=== PATIENT | female | born 1945 | race Caucasian/White ===

== ENCOUNTER 2016-09-26 10:50 | Inpatient (IN) ==
--- NOTE | 2016-09-25 22:04 | Discharge Summary ---
<Dona Lyles - Last Filed: 09/25/16 22:02> Date of Encounter: 09/25/16 - Discharge Diagnosis (1) Arthritis of knee, left Priority: Primary Status: Acute (2) Status post total knee replacement, left Priority: Primary Status: Acute (3) CAD (coronary artery disease) Priority: Secondary Status: Chronic Qualifiers: Coronary Disease-Associated Artery/Lesion type: cheesh-na artery [place] vs. transplanted heart: cheesh-na heart Associated angina: without angina Qualified Code(s): I25.10 - Atherosclerotic heart disease of cheesh-na coronary artery without angina pectoris (4) History of [place] (myocardial infarction) Priority: Secondary Status: Chronic (5) HLD (hyperlipidemia) Priority: Secondary Status: Chronic Qualifiers: Hyperlipidemia type: pure hypercholesterolemia Qualified Code(s): E78.00 - Pure hypercholesterolemia, unspecified; E78.0 - Pure hypercholesterolemia (6) Chronic pain Priority: Secondary Status: Chronic Qualifiers: Chronic pain type: other chronic pain Qualified Code(s): G89.29 - Other chronic pain - Discharge Medications Home Medications: Aspirin Enteric Coated [Aspirin EC] 325 mg PO DAILY #21 tablet.dr 09/25/16 [Rx] OxyCODONE Immed Rel [Roxicodone 5 MG] 5 - 10 mg PO Q6HR PRN #40 tablet 09/25/16 [Rx] Aspirin [Lo-Dose Aspirin EC] 81 mg PO DAILY 09/26/16 [History] Docusate [Colace] 100 mg PO DAILY PRN 09/26/16 [History] Furosemide [Lasix] 40 mg PO DAILY 09/26/16 [History] HYDROcodone/Acet 5/325 mg [[place] 5-325 mg] 1 tab PO Q6H PRN 09/26/16 [History] LORazepam [Ativan] 0.5 mg PO Q6H PRN 09/26/16 [History] Methotrexate [Otrexup] 7.5 mg PO WE 09/26/16 [History] Omeprazole [PriLOSEC] 40 mg PO DAILY 09/26/16 [History] Potassium Chloride [K-Tab ER] 10 meq PO DAILY 09/26/16 [History] Simvastatin [Zocor] 20 mg PO HS 09/26/16 [History] amLODIPine [Norvasc] 5 mg PO DAILY 09/26/16 [History] rOPINIRole [Requip] 0.25 mg PO HS 09/26/16 [History] Allergies/Adverse Reactions: Allergies Penicillins Allergy (Verified 09/26/16 19:37) Rash codeine Adverse Reaction (Verified 09/26/16 19:37) Cough lisinopril Adverse Reaction (Verified 09/26/16 19:37) Cough Primary care physician: Татьяна Sutherland MD - Patient Status Disposition: Home Health Service Condition: Good - Discharge Instructions Follow Up With: Dona Lyles PAC [Physician [employer]] - 10/06/16 2:45 pm Татьяна Sutherland MD [Primary Care Provider] - Additional Instructions: Discharge Instructions: Total Knee Replacement Please call [facility] ([phone]), your Primary Care Physician, or report to the Emergency Room if you have any of the following symptoms: Nausea, vomiting, fever greater that 101.5, swelling, chest pain, shortness of breath, increased pain/redness/drainage/odor for your incision site, numbness/ tingling, or any other concerning symptoms. ACTIVITY:Weight-bearing as tolerated. You may progress off support (crutches or walker) as tolerated. MEDICATIONS: Upon discharge resume your home medications. Take all the medications as prescribed. Take a stool softener if taking narcotic pain medications. Stool softeners are only effective if you drink enough fluids. Drink 6-8 glass of water or fluids a day, unless this is not allowed for another health problem. Despite using stool softeners, if you haven't had a bowel movement in 3 days, please switch to a gentle laxative. Gentle laxatives are sold over the counter. You should have a bowel movement within 24 hours, if not call the office. You will be discharged from the hospital with a prescription for pain medication. You are encouraged to decrease the use of narcotic pain medication as tolerated. Should you require a refill, please call the office. [facility] prescribes narcotic pain medication for only 4-6 weeks after surgery. If you require pain medication beyond this time period, you may be referred to your Primary Care Physician or to the Pain Clinic for further evaluation. Plan ahead for refills on pain medication as many narcotics either need to be picked up at the office or mailed. It is best to call 48-72 hours in advance of needing a prescription refill so you don't run out of medication. To help control the post-operative pain, you may take NSAIDs (Aleve,Advil, Motrin, Ibuprofen, Naprosyn) or Tylenol as prescribed on the bottle in addition to the pain medication. ANTICOAGULATION (blood thinners): Continue your Aspirin, Lovenox or Coumadin as prescribed to help prevent a blood clot in the leg or in the lungs. As long as your incision remains dry and you tolerate the NSAIDs (Aleve, Advil, Motrin, ibuprofen, naprosyn), it is OK to use the NSAIDS while you are taking your anticoagulation medication. Should your incision start to drain, stop the NSAID and contact our office. Common symptoms of blood clot in the legs include: localized pain, swelling, calf tenderness, redness or discoloration of the skin. Blood clot in the lung symptoms include: shortness of breath, rapid pulse, sweating, and chest pain that worsens with deep breathing, coughing up blood, lightheadedness, feelings of anxiety. If you experience any of these symptoms notify your physician immediately, go to the emergency room, or if having trouble breathing, call 911. WOUND CARE: Leave the dressing on for 7 to 10days. You may change the dressing if it becomes saturated greater than 50%. Do not get the dressing wet at anytime. Wash your hands with antibacterial soap, rinse and dry prior to any wound care. If you have brian the visiting nurse or rehab facility can remove the stapes 10-14 days after surgery and place steri-strips across the wound. Leave the steri-strips in place until they fall off on their won. You may let water from the shower run on top of the steri-strips. If you do not have a visiting nurse or rehab facility, you will need to return to the office at 10-14 days for the brian to be removed. If you have itching or redness around the dressing call the office. FOLLOW-UP: Please follow up with your surgeon in the orthopedic clinic in 4 weeks from the day of surgery. If you have brian that need to be removed, you will need to come back to the office in 10-14 days from the day of surgery. - Hospital Course Hospital course: Ms. Pastrana is a 71 year old female - Time Spent with Patient Total time spent providing and/or coordinating discharge services: <Kaleb Quigley - Last Filed: 09/29/16 06:34> Date of Encounter: 09/29/16 Time of Encounter: 06:34 - Discharge Diagnosis (1) Arthritis of knee, left Priority: Primary Status: Chronic (2) Status post total knee replacement, left Priority: Primary Status: Acute (3) CAD (coronary artery disease) Priority: Secondary Status: Chronic Qualifiers: Coronary Disease-Associated Artery/Lesion type: cheesh-na artery [place] vs. transplanted heart: cheesh-na heart Associated angina: without angina Qualified Code(s): I25.10 - Atherosclerotic heart disease of cheesh-na coronary artery without angina pectoris (4) History of HI (myocardial infarction) Priority: Secondary Status: Chronic (5) HLD (hyperlipidemia) Priority: Secondary Status: Chronic Qualifiers: Hyperlipidemia type: pure hypercholesterolemia Qualified Code(s): E78.00 - Pure hypercholesterolemia, unspecified; E78.0 - Pure hypercholesterolemia (6) Chronic pain Priority: Secondary Status: Chronic Qualifiers: Chronic pain type: other chronic pain Qualified Code(s): G89.29 - Other chronic pain (7) Acute blood loss anemia Priority: Primary Status: Acute Primary care physician: Татьяна Sutherland MD - Patient Status Functional capacity at discharge: uses cane/walker Overall status at discharge: patient is progressing back to baseline - Hospital Course Hospital course: Ms. Pastrana is a 71 year old female Status post left total knee replacement. The patient had an uneventful postoperative course. They received antibiotics and physical therapy and were discharged in stable condition. There will follow -up in the office in 2 weeks. - Time Spent with Patient Total time spent providing and/or coordinating discharge services:
--- NOTE | 2016-09-25 22:09 | Physician Discharge Referral ---
Home Health/Hosp Referral Info Transfer to: Home Health Provider in Charge Post Discharge: PCP - Diagnosis (1) Arthritis of knee, left Priority: Primary Status: Acute (2) Status post total knee replacement, left Priority: Primary Status: Acute (3) CAD (coronary artery disease) Priority: Secondary Status: Chronic (4) History of [place] (myocardial infarction) Priority: Secondary Status: Chronic (5) HLD (hyperlipidemia) Priority: Secondary Status: Chronic (6) Chronic pain Priority: Secondary Status: Chronic - Respiratory Orders None Smoking Cessation: Smoking cessation has been advised. For more information, call the [place] Tobacco Quit Line at 2-750-TRWR-NOW. - Diet/Nutrition Diet/Nutrition Orders: Regular - Activity Activity Orders: Up ad stan, Ambulate - Services Needed Following services are medically necessary services: Nursing, Home Health Aide, Physical Therapy, Occupational Therapy Home Care Orders: Opsite dressing, leave intact until first post-operative visit. If dressing becomes >50% saturated, contact office, remove dressing and place appropriate dressing in its place. Do not allow for dressing to get wet. Swapna in place, plan to remove at post-operative day #14-16. Total Joint Precautions x 6 weeks Apply cold therapy wrap 3-6x/day for 20 minutes at a time. Encourage ambulation throughout the day Use Incentive spirometer 10x/hour. Elevate affected extremity above heart as tolerated. Brace: Wear knee immobilizer at night x 2 weeks - Transfer Medications Prescriptions: OxyCODONE Immed Rel [Roxicodone 5 MG] 5 - 10 mg PO Q6HR PRN #40 tablet PRN Reason: Pain Aspirin Enteric Coated [Aspirin EC] 325 mg PO DAILY #21 tablet. Home Medications: Aspirin Enteric Coated [Aspirin EC] 325 mg PO DAILY #21 tablet. 09/25/16 [Rx] OxyCODONE Immed Rel [Roxicodone 5 MG] 5 - 10 mg PO Q6HR PRN #40 tablet 09/25/16 [Rx] Allergies/Adverse Reactions: Allergies codeine Allergy (Unverified 09/21/16 09:42) Cough lisinopril Allergy (Unverified 09/21/16 09:42) Cough Penicillins Allergy (Unverified 09/21/16 09:42) Rash Certification: Further, I certify that my clinical findings support that this patient is homebound (i.e. absences from home require considerable and taxing effort and are for medical reasons or restorationist services or infrequently or short duration when for other reasons) because: Homebound Reason: Post-surgery restriction and or conditions limit ability to leave home Attestation: My signature below is to certify that this patient is under my care and that I, or nurse practitioner, or a physician's practice assistant working with me, has a face-to -face encounter with this patient.
[2016-09-26] MEDS ORDERED: Famotidine 20 MG/2 ML VIAL IVP ONE (11:04)
[2016-09-26] MEDS ORDERED: Gabapentin 300 MG CAPSULE PO ONE (11:05)
[2016-09-26] MEDS ORDERED: Clindamycin 900 MG/50 ML 900 MG/50 ML IV.SOLN IVPB ONE ×2 (11:27→11:28)
[2016-09-26] MEDS ORDERED: Ringers Solution, Lactated 1,000 ML IVC SCH (11:30)
[2016-09-26] MEDS ORDERED: *HR* Propofol 200 MG/20 ML VIAL IVP ONE (11:34)
[2016-09-26] MEDS ORDERED: *HR* FentaNYL (PF) 100 MCG/2 ML VIAL ONE (11:34)
[2016-09-26] MEDS ORDERED: Lidocaine -MPF 2% 2 ML VIAL ONE (11:34)
[2016-09-26] MEDS ORDERED: Ondansetron 4 MG/2 ML VIAL ONE (11:37)
--- NOTE | 2016-09-26 11:52 | Anesthesia Evaluation PreOp ---
Date of Encounter: 09/26/16 Time of Encounter: 11:50 - Past History Planned Operation: Left TKA Cardiac History: [place], HTN, Hyperlipidemia Pulmonary History: Former smoker NETWORK [employer]CH[employer] History: Denies Any Significant HX Other Medical History: Other (Anxiety) Anesthesia History: No Prior Anesthetic Complications : No Alcohol Use: none Drug use: none Medications and Allergies Aspirin Enteric Coated [Aspirin EC] 325 mg PO DAILY #21 tablet. 09/25/16 [Rx] OxyCODONE Immed Rel [Roxicodone 5 MG] 5 - 10 mg PO Q6HR PRN #40 tablet 09/25/16 [Rx] Allergies codeine Allergy (Unverified 09/21/16 09:42) Cough lisinopril Allergy (Unverified 09/21/16 09:42) Cough Penicillins Allergy (Unverified 09/21/16 09:42) Rash - Meds/Allergy Pre-op Review Medications Reviewed: Yes Allergies Reviewed: Yes Beta Blockers on Current Med List: No Anesthesia Results - Labs Laboratory Tests 09/21/16 09/21/16 09:50 09:50 Hgb 15.1 Hct 45.5 H Plt Count 297 Sodium 143 Potassium 3.1 L BUN 11 Creatinine 1.01 - Imaging EKG: report reviewed (SR) Anesthesia Exam O2 Sat Height 1.55 m Height 1.55 m Weight 81.193 kg Weight 81.193 kg O2 Sat by Pulse Oximetry 99 Vital Signs Temp Pulse Resp BP Pulse Ox 98.1 F 71 18 148/86 99 09/26/16 11:09 09/26/16 11:09 09/26/16 11:09 09/26/16 11:09 09/26/16 11:09 Height: 5'1 Weight: 179 lbs NPO (# of Hours): MN Pain Scale: 0 - HEENT Pupil (Motor): Pupils equal, EOMI Mallampati: III Teeth: Edentulous Oral Opening: Less than or equal to 3 - NETWORK [employer]CHITECT LOC: Oriented [employer]CH[employer] Motor: Normal RUE, Normal LUE, Normal RLE, Normal LLE, Normal Face [employer] Sensory: Normal: RUE, LUE, RLE, LLE, Face - Cardiac Rhythm: Regular Murmur: None JVD: No Carotid Bruit: No - Pulmonary Breath Sounds: bilateral Clear Respiratory Effort: Symmetrical Anesthesia Assess/Plan ASA Score: 3 (HTN CAD) Modified Foster Scale for Level of Consciousness: Cooperative, oriented, and tranquil Anesthetic Plan: General, Regional Monitoring Plan: Standard Monitors Recovery Plan: PACU (Discussed GA and RA, agrees to proceed)
--- NOTE | 2016-09-26 12:12 | History & Physical Report ---
Date of Encounter: 09/26/16 Time of Encounter: 12:11 24 Hour HP Update - Instructions Instructions: If the History and Physical is less than 30 days old and was completed prior to A.M. admission and or procedure and has NOT been updated on calendar day of procedure please complete this update prior to performing procedure. - Update Patient reports changes in Medical Condition: No Changes in examination, assessment, or condition: No Changes in Medication: No Preop tests/diagnostics Reviewed: Yes Surgery Remains Indicated: Yes Consent for Planned Operative Procedure(s) Verified: Yes - Pre-Operative Checklist Preoperative Checklist Indicated: No Prophylactic Antibiotic Ordered: Yes Is VTE Prophylaxis Indicated?: Yes
[2016-09-26] MEDS ORDERED: Tetracaine/PF 20 MG/2 ML AMPUL ONE (12:29)
[2016-09-26] MEDS ORDERED: Bupivacaine/Clonidine Syringe 1 EACH SYRINGE ONE (12:29)
[2016-09-26] MEDS ORDERED: ROPIVACAINE HCL/PF 0.5% 30 ML VIAL ONE (12:29)
[2016-09-26] MEDS ORDERED: *HR* Midazolam HCl 2 MG/2 ML VIAL ONE (12:33)
[2016-09-26] MEDS ORDERED: *HR* Meperidine 25 MG/ML SYRINGE IVP PRN (13:18)
--- NOTE | 2016-09-26 13:19 | Anesthesia Procedures ---
Date of Encounter: 09/26/16 Time of Encounter: 11:50 Procedures: Anesthesia - Nerve Block Procedure Date: 09/26/16 Time: 12:45 Pre-op Diagnosis: Left Knee OA Surgical Procedure: Left TKA Checklist: Correct Patient Identifier Correct side: Left Blood Thinner: No Monitor Applied: EKG, BP, Pulse Oximetry Supplemental Oxygen via Nasal Cannula (L/min): 2 Sedation: Versed (mg): 2 Sedation: Fentanyl (mcg): 100 Indication: Post Op Analgesia Pre-op Neuro Deficits: No Block Type: Femoral, Other (IPACK) Catheter placed: No Depth at skin (cm): 3 Sterile Technique: Yes Ultrasound used: Yes Anatomy identified: Yes Visual spread of Local: Yes Neuro Stimulation: Yes Nerve Stimulator Range: >0.4 - 0.6 mA Blood on Needle Aspiration: No Smooth Injection of Local: Yes Pain with Injection of Local: No Prep: Chlorhexadine Needle: 22 x 50 mm Stimuplex Local: 0.25% Bupivicaine w/Clonidine 20 mcg/cc, Ropivacaine (0.5%) Volume (cc): 30 Number of Attempts: 1 Complications: None/effective block Vitals: Vital Signs/O2 Sat/Glucose, Most Current Temp Pulse Resp BP Pulse Ox 09/26/16 12:55 98.1 F 71 16 137/89 96 09/26/16 12:34 72 16 142/78 97 09/26/16 11:09 98.1 F 71 18 148/86 99
[2016-09-26] MEDS ORDERED: Dexamethasone 4 MG/ML VIAL ONE ×2 (13:24→13:25)
--- NOTE | 2016-09-26 13:35 | Orthopedic Operative Note ---
Date of procedure: 09/26/16 Pre-op diagnosis: Left knee arthritis Post-op diagnosis: same Procedure: Procedure: Left Total knee replacement Estimated blood loss: 200 cc Hardware: Metal and polyethylene replacement. Arthrex Femur: 3 Tibia: 3 PS insert: 13 Patella: 34 Exam Under anesthesia: Loss full extension 10 degrees full flexion no stability Procedural Notes: Grade 4 arthritic changes medial compartment patellofemoral joint. Operative procedure: The patient was brought to the operating room and placed on the operating room table. After general anesthesia was administered the operative knee was examined. Findings were noted in the exam under anesthesia. The operative extremity was prepped and draped in sterile surgical fashion. The patient received IV antibiotics prior to skin incision. A standard midline incision was made centered over the patella. The incision was made through the skin and subcutaneous tissue. A medial parapatellar tendon approach was performed. Care was taken to preserve tissue along the medial aspect of the patella. And to protect the patella tendon. The deep MCL was released off the medial tibia. The infra patella fat pad was excised. Knee was brought into flexion. Patient noted to have grade 4 arthritic changes medial compartment and patellofemoral joint. The entry hole was made for the intramedullary femoral guide. The guide was seated in 6 degrees of valgus. Anterior cut was made followed by the distal cut. The ACL the PCL the medial and the lateral menisci were excised. The tibia was subluxed forward. The entry hole was made for the intramedullary tibial guide. Guide was seated to resect 2 mm off the more abnormal side. The knee was brought into flexion the distal femur was sized to a 3. The femoral guide was seated, the anterior cut was made followed by the posterior condylar cut, followed by the chamfer cuts. The finishing guide was seated the box cut was made and the lug holes were drilled. The tibia was sized to a 3, the tibial tray was seated and prepared with the large drill followed by the fin cutter. Trial reduction revealed full extension no varus valgus instability with the appropriate 13 PS Jeannie. The patella was everted and cut was made at the level of the insertion of the quadriceps and patella tendon. The patella was sized 34 the guide was seated and the lug holes are drilled. Trial reduction revealed excellent patella tracking. All trial components were removed all bony surfaces were irrigated. The tibia was cemented first followed by the femur. The 13 PS Jeannie was seated and the knee was brought into full extension. The patella was cemented and held in place with the patellar holding clamp. After the cement had hardened, the knee sat for 2 minutes with a Betadine saline solution. The knee was then irrigated out with 2 L of pulse irrigation. The knee was closed by the PA. The extensor mechanism was closed with #2 FiberWire suture and #2 PDS suture. The subcutaneous tissue was then irrigated and closed deep with #1 PDS suture superficially with 0 PDS suture and skin was closed with skin brian. The patient was then placed in a sterile dressing and a postoperative brace extubated and transferred to recovery room in stable condition. Anesthesia: MARIO Surgeon: Kaleb Quigley Folder Operator: Ginny Pineda Condition: stable Disposition: PACU
[2016-09-26] MEDS ORDERED: Ketorolac 30 MG/ML VIAL ONE (13:37)
[2016-09-26 14:32] LABS: Hematocrit 41.8 % (35.3-44.9); Hemoglobin 13.9 g/dL (11.5-15.4)
[2016-09-26] MEDS: *HR* HYDROmorphone (PF) 1 MG/ML SYRINGE IVP PRN ×3 (14:35→14:49)
[2016-09-26] MEDS ORDERED: Ondansetron 4 MG/2 ML VIAL IVP PRN (15:34)
[2016-09-26] MEDS ORDERED: *HR* LORazepam 0.5 MG TABLET PO PRN (15:34)
[2016-09-26] MEDS ORDERED: Naloxone 0.4 MG/ML INJ IVP PRN (15:34)
[2016-09-26] MEDS ORDERED: Sennosides 8.6 MG TABLET PO PRN (15:34)
[2016-09-26] MEDS ORDERED: MOM Conc 10 ML UD.LIQ PO PRN (15:34)
[2016-09-26] MEDS ORDERED: *HR* OxyCODONE Immed Rel 5 MG TABLET PO PRN (15:34)
[2016-09-26] MEDS ORDERED: *HR* Enoxaparin 30 MG/0.3 ML SYRINGE SQ SCH (18:00)
[2016-09-26] MEDS: Clindamycin 900 MG/50 ML 900 MG/50 ML IV.SOLN IVPB SCH (18:31)
[2016-09-26] MEDS: *HR* OxyCODONE Immed Rel 5 MG TABLET PO PRN (18:32)
[2016-09-26] MEDS: *HR* Enoxaparin 30 MG/0.3 ML SYRINGE SQ SCH (18:32)
[2016-09-26] MEDS ORDERED: Temazepam 15 MG CAPSULE PO PRN (21:00)
[2016-09-26] MEDS: rOPINIRole 0.25 MG TABLET PO SCH (21:29)
[2016-09-26] MEDS: Ringers Solution, Lactated 1,000 ML IVC SCH (21:44)
[2016-09-27] MEDS: Clindamycin 900 MG/50 ML 900 MG/50 ML IV.SOLN IVPB SCH (00:18)
[2016-09-27] MEDS: *HR* Enoxaparin 30 MG/0.3 ML SYRINGE SQ SCH ×2 (05:25→17:14)
[2016-09-27 06:03] LABS: Hematocrit 33.5 % (35.3-44.9)
[2016-09-27 06:14] LABS: Hemoglobin 11.2 g/dL (11.5-15.4)
--- NOTE | 2016-09-27 06:23 | Orthopedics Progress Note ---
Date of Encounter: 09/27/16 Time of Encounter: 06:23 - Assessment and Plan (1) Arthritis of knee, left Current Visit: Yes Status: Chronic (2) Status post total knee replacement, left Current Visit: Yes Status: Acute (3) CAD (coronary artery disease) Current Visit: Yes Status: Chronic Qualifiers: Coronary Disease-Associated Artery/Lesion type: [place] artery [place] vs. transplanted heart: [place] heart Associated angina: without angina Qualified Code(s): I25.10 - Atherosclerotic heart disease of [place] coronary artery without angina pectoris (4) History of [place] (myocardial infarction) Current Visit: Yes Status: Chronic (5) HLD (hyperlipidemia) Current Visit: Yes Status: Chronic Qualifiers: Hyperlipidemia type: pure hypercholesterolemia Qualified Code(s): E78.00 - Pure hypercholesterolemia, unspecified; E78.0 - Pure hypercholesterolemia (6) Chronic pain Current Visit: Yes Status: Chronic Qualifiers: Chronic pain type: other chronic pain Qualified Code(s): G89.29 - Other chronic pain Subjective Interval history: Patient was seen this morning doing well without complaints. Afebrile vital signs stable. Operative extremity: Neurovascularly intact Dressing clean dry and intact Calves nontender Assessment and plan: Continue with postoperative care Hematocrit 33 Objective Vital signs: Vital Signs Temp Pulse Resp BP Pulse Ox 09/27/16 04:05 97.6 F 66 16 94/60 92 09/26/16 23:25 97.8 F 71 16 97/63 96 09/26/16 22:43 71 94/59 09/26/16 21:34 78 98/65 09/26/16 18:33 97.9 F 89 20 106/68 93 09/26/16 17:30 97.6 F 75 15 105/81 94 09/26/16 16:25 97.6 F 81 16 100/64 93 09/26/16 16:09 97.6 F 76 16 108/74 95 09/26/16 16:04 96 09/26/16 15:55 97.5 F L 75 15 113/78 94 09/26/16 15:35 97.8 F 70 18 105/71 96 09/26/16 15:13 97.5 F L 67 16 111/70 99 09/26/16 15:03 97.5 F L 66 16 96/90 97 09/26/16 14:53 64 16 93/70 98 09/26/16 14:43 97.3 F L 64 14 105/58 97 09/26/16 14:33 65 14 106/63 96 09/26/16 14:23 70 14 150/100 94 09/26/16 14:13 97.4 F L 77 14 131/78 94 09/26/16 12:55 98.1 F 71 16 137/89 96 09/26/16 12:34 72 16 142/78 97 09/26/16 11:09 98.1 F 71 18 148/86 99 Intake and Output 09/26/16 09/26/16 09/27/16 15:59 23:59 07:59 Intake Total 170 / 170 Output Total 200 / 200 200 / 200 Balance -200 / -200 -30 / -30 Intake: IV Fluids 50 / 50 Cleocin Premix 900 MG/50 50 / 50 ML 900 mg In 50 ml @ 50 mls/hr IVPB Q8HR [facility] Rx#: [id number] Oral 120 / 120 Output: Urine 0 / 0 200 / 200 Estimated Blood Loss 200 / 200 Other: Meal Dinner Percent of Meal Consumed 25% Weight 81.193 kg - Labs CBC & BMP: 09/27/16 04:14 Labs: Abnormal lab results Hgb 11.2 g/dL (11.5-15.4) L D 09/27/16 04:14 Hct 33.5 % (35.3-44.9) L 09/27/16 04:14 - VTE Documentation of Mechanical Device: Venous foot pump, device Consult Discharge Plan - Plan Referrals: Татьяна Sutherland MD [Primary Care Provider] -
[2016-09-27 06:24] LABS: Calcium 8.7 mg/dL (8.6-10.8); Potassium 3.7 mEq/L (3.5-4.5)
[2016-09-27] MEDS: Aspirin Enteric Coated 81 MG Tablet PO SCH (08:15)
[2016-09-27] MEDS: *HR* OxyCODONE Immed Rel 5 MG TABLET PO PRN ×3 (08:15→21:29)
[2016-09-27] MEDS: Furosemide 40 MG TABLET PO SCH (08:23)
[2016-09-27] MEDS: amLODIPine 5 MG TABLET PO SCH (08:24)
[2016-09-27] MEDS: *HR* HYDROmorphone (PF) 1 MG/ML SYRINGE IVP PRN ×2 (10:41→17:22)
[2016-09-27] MEDS: Ringers Solution, Lactated 1,000 ML IVC SCH (11:24)
--- NOTE | 2016-09-27 11:53 | Event Note ---
Date of Encounter: 09/27/16 Time of Encounter: 11:52 PCR - POD#1 - Left TKR 09/26/16 Patient seen at bedside. D/C Oxygen via NC, Needs IS in room Pain control: Adequate - Chronic pain - Percocet 5/325 TID Participating in PT. All questions and concerns addressed. Educated on use of incentive spirometer, ambulation, and hydration. Patient educated on post-operative restrictions and care. Addressed: See above D/C plan: Home with [facility]
[2016-09-27] MEDS: rOPINIRole 0.25 MG TABLET PO SCH (20:25)
[2016-09-28] MEDS: *HR* HYDROmorphone (PF) 1 MG/ML SYRINGE IVP PRN ×2 (00:24→04:40)
[2016-09-28] MEDS: *HR* OxyCODONE Immed Rel 5 MG TABLET PO PRN ×3 (02:25→15:50)
[2016-09-28 05:32] LABS: Hematocrit 30.9 % (35.3-44.9); Hemoglobin 10.5 g/dL (11.5-15.4)
[2016-09-28] MEDS: *HR* Enoxaparin 30 MG/0.3 ML SYRINGE SQ SCH (05:38)
[2016-09-28 05:47] LABS: BUN/Creatinine Ratio 22 (6-26); Blood Urea Nitrogen 20 mg/dL (7-20); Calcium 8.7 mg/dL (8.6-10.8); Carbon Dioxide 28 mEq/L (19-29); Chloride 107 mEq/L (98-109); Glucose 130 mg/dL (70-99); Osmolality,Calculated 292 (280-300); Potassium 4.3 mEq/L (3.5-4.5); Sodium 139 mEq/L (136-145); eGFR For African Americans > 60 (> 60); eGFR For Non-African Americans > 60 (> 60)
--- NOTE | 2016-09-28 07:51 | Orthopedics Progress Note ---
Date of Encounter: 09/28/16 Time of Encounter: 07:50 - Assessment and Plan (1) Arthritis of knee, left Current Visit: Yes Status: Chronic (2) Status post total knee replacement, left Current Visit: Yes Status: Acute (3) CAD (coronary artery disease) Current Visit: Yes Status: Chronic Qualifiers: Coronary Disease-Associated Artery/Lesion type: [place] artery [place] vs. transplanted heart: [place] heart Associated angina: without angina Qualified Code(s): I25.10 - Atherosclerotic heart disease of [place] coronary artery without angina pectoris (4) History of NH (myocardial infarction) Current Visit: Yes Status: Chronic (5) HLD (hyperlipidemia) Current Visit: Yes Status: Chronic Qualifiers: Hyperlipidemia type: pure hypercholesterolemia Qualified Code(s): E78.00 - Pure hypercholesterolemia, unspecified; E78.0 - Pure hypercholesterolemia (6) Chronic pain Current Visit: Yes Status: Chronic Qualifiers: Chronic pain type: other chronic pain Qualified Code(s): G89.29 - Other chronic pain (7) Acute blood loss anemia Current Visit: Yes Status: Acute Subjective Interval history: Patient was seen this morning doing well without complaints. Afebrile vital signs stable. Operative extremity: Neurovascularly intact Dressing clean dry and intact Calves nontender Assessment and plan: Continue with postoperative care Hematocrit 30 Objective Vital signs: Vital Signs Temp Pulse Resp BP Pulse Ox 09/28/16 07:22 98.5 F 89 16 135/82 93 09/28/16 04:44 85 125/79 09/28/16 00:42 98.7 F 83 19 128/81 93 09/27/16 20:50 98.4 F 76 18 102/66 91 09/27/16 15:56 98.0 F 78 17 104/68 94 09/27/16 10:38 97.7 F 72 16 108/69 96 09/27/16 08:26 96 09/27/16 07:52 98.1 F 70 16 108/71 96 Intake and Output 09/27/16 09/27/16 09/28/16 15:59 23:59 07:59 Intake Total 1240 / 1240 120 / 120 240 / 240 Output Total 150 / 150 550 / 550 Balance 1090 / 1090 -430 / -430 240 / 240 Intake: IV Fluids 1000 / 1000 Lactated Ringers 1,000 ML 1000 / 1000 @ 75 mls/hr IVC .[id number] JERRICA Rx#:[id number] Oral 240 / 240 120 / 120 240 / 240 Output: Urine 150 / 150 550 / 550 Other: Meal Breakfast Dinner Percent of Meal Consumed 100% 50% # Voids 1 1 - Labs CBC & BMP: 09/28/16 05:18 09/28/16 05:18 Labs: Abnormal lab results Hgb 10.5 g/dL (11.5-15.4) L 09/28/16 05:18 Hct 30.9 % (35.3-44.9) L 09/28/16 05:18 Glucose 130 mg/dL (70-99) H 09/28/16 05:18 - VTE Documentation of Mechanical Device: Venous foot pump, device Consult Discharge Plan - Plan Referrals: Татьяна Sutherland MD [Primary Care Provider] -
[2016-09-28] MEDS: Aspirin Enteric Coated 81 MG Tablet PO SCH (08:13)
[2016-09-28] MEDS: amLODIPine 5 MG TABLET PO SCH (08:13)
[2016-09-28] MEDS: Furosemide 40 MG TABLET PO SCH (08:14)
[2016-09-28 11:33] VITALS: BP 127/79
--- NOTE | 2016-09-28 11:53 | Event Note ---
Date of Encounter: 09/28/16 Time of Encounter: 12:55 PCR - POD#2 - Left TKR 09/26/16 Patient seen at bedside. D/C Oxygen via NC, IS in room, Pain control: Adequate - Chronic pain - Percocet 5/325 TID Not participating in PT. PT now recommending ECF. All questions and concerns addressed. Educated on use of incentive spirometer, ambulation, and hydration. Patient educated on post-operative restrictions and care. Addressed: Possible ECF - patient states will "lay down and " if goes to ECF. Discussed need for PT participation. Head of bed needs to be elevated secondary to O2 desaturation and decreased participation in PT. D/C O2 via NC as tolerated. Trial lidoderm patch to areas of pain on LLE. Rx to go home with. D/C plan: Home with [facility]. Possible ECF depending on therapy progression here. Continuity completed.
--- NOTE | 2016-09-28 12:20 | Physician Discharge Referral ---
<Ginny Pineda E - Last Filed: 09/28/16 12:19> ExtendedCare Referral Info Transfer To: [facility] Provider in Charge: Dr Kaleb Quigley Institutional Level of Care: Skilled - Diagnosis (1) Arthritis of knee, left Priority: Primary Status: Chronic (2) Status post total knee replacement, left Priority: Primary Status: Acute (3) CAD (coronary artery disease) Priority: Secondary Status: Chronic (4) History of MA (myocardial infarction) Priority: Secondary Status: Chronic (5) HLD (hyperlipidemia) Priority: Secondary Status: Chronic (6) Chronic pain Priority: Secondary Status: Chronic Expected Duration of Placement: <30 days Prognosis: Good Aware of Diagnosis: Patient Aware of Prognosis: Patient - Transfer Medications Home Medications: Aspirin Enteric Coated [Aspirin EC] 325 mg PO DAILY #21 tablet. 09/25/16 [Rx] OxyCODONE Immed Rel [Roxicodone 5 MG] 5 - 10 mg PO Q6HR PRN #40 tablet 09/25/16 [Rx] Aspirin [Lo-Dose Aspirin EC] 81 mg PO DAILY 09/26/16 [History] Docusate [Colace] 100 mg PO DAILY PRN 09/26/16 [History] Furosemide [Lasix] 40 mg PO DAILY 09/26/16 [History] HYDROcodone/Acet 5/325 mg [[place] 5-325 mg] 1 tab PO Q6H PRN 09/26/16 [History] LORazepam [Ativan] 0.5 mg PO Q6H PRN 09/26/16 [History] Methotrexate [Otrexup] 7.5 mg PO WE 09/26/16 [History] Omeprazole [PriLOSEC] 40 mg PO DAILY 09/26/16 [History] Potassium Chloride [K-Tab ER] 10 meq PO DAILY 09/26/16 [History] Simvastatin [Zocor] 20 mg PO HS 09/26/16 [History] amLODIPine [Norvasc] 5 mg PO DAILY 09/26/16 [History] rOPINIRole [Requip] 0.25 mg PO HS 09/26/16 [History] Allergies/Adverse Reactions: Allergies Penicillins Allergy (Verified 09/26/16 19:37) Rash codeine Adverse Reaction (Verified 09/26/16 19:37) Cough lisinopril Adverse Reaction (Verified 09/26/16 19:37) Cough - Respiratory Orders Smoking Cessation: Smoking cessation has been advised. For more information, call the [place] Tobacco Quit Line at 0-621-YLFJ-NOW. - Ancillary Orders May use pressure relief devices daily prn, May go on TEJA w/family/respon alliance party w /meds at nurse discretion PRN, May consult with Dentist, Named Account Executive, Lens Finisher PRN - Mobility Orders Chair, Ambulate (with walker) - Rehabiliation Orders Rehab Potential: Good Rehab Orders: Evaluation for Physical Therapy, Evaluation for Occupational Therapy Other: Opsite dressing, leave intact until first post-operative visit. If dressing becomes >50% saturated, contact office, remove dressing and place appropriate dressing in its place. Do not allow for dressing to get wet. Swapna in place, plan to remove at post-operative day #14-16. Total Joint Precautions x 6 weeks Apply cold therapy wrap 3-6x/day for 20 minutes at a time. Encourage ambulation throughout the day Use Incentive spirometer 10x/hour. Elevate affected extremity above heart as tolerated. Brace: Wear knee immobilizer at night x 2 weeks. - Treatments Skin tear care topically daily PRN per policy List/Other: Opsite dressing, leave intact until first post-operative visit. If dressing becomes >50% saturated, contact office, remove dressing and place appropriate dressing in its place. Do not allow for dressing to get wet. Swapna in place, plan to remove at post-operative day #14-16. Total Joint Precautions x 6 weeks Apply cold therapy wrap 3-6x/day for 20 minutes at a time. Encourage ambulation throughout the day Use Incentive spirometer 10x/hour. Elevate affected extremity above heart as tolerated. Brace: Wear knee immobilizer at night x 2 weeks. - Diet Orders Regular CERTIFICATION: I certify that the transfer of the above named patient to an Extended Care Facility is necessary for the continuing treatment of the diagnosis listed. The above information is true and accurate reflection of patient's current condition. Confidential - Redisclosure prohibited without a patient's written consent. <Dona Lyles - Last Filed: 09/28/16 15:40> - Diagnosis (1) Arthritis of knee, left Status: Chronic (2) Status post total knee replacement, left Status: Acute (3) CAD (coronary artery disease) Status: Chronic (4) History of MA (myocardial infarction) Status: Chronic (5) HLD (hyperlipidemia) Status: Chronic (6) Chronic pain Status: Chronic - Respiratory Orders Smoking Cessation: Smoking cessation has been advised. For more information, call the [place] Tobacco Quit Line at 6-259-SGDJ-NOW. CERTIFICATION: I certify that the transfer of the above named patient to an Extended Care Facility is necessary for the continuing treatment of the diagnosis listed. The above information is true and accurate reflection of patient's current condition. Confidential - Redisclosure prohibited without a patient's written consent.
[2016-09-28] MEDS ORDERED: *HR* Methotrexate 2.5 MG TABLET PO SCH (12:54)
== END 2016-09-28 16:39 | disposition home health service (06) | DRG 302 ==
LOC: SAMDAY 10:50 → 3NENU 15:33
PROVIDERS: ADMIT Orthopaedic Surgery; ATTEND Orthopaedic Surgery